=== PATIENT | male | born 1960 | race Caucasian/White ===

== ENCOUNTER 2024-10-13 10:17 | Day surgery (SDC) | payer SELFPAY ==
[2024-10-13] VITALS (21 sets, daily range): BP systolic 136–181; BP diastolic 70–127; PULSE 69–88; RESP 12–20; TEMP 36.5–37.6; O2SAT 93–100; BMI 22.7
--- NOTE | ~2024-10-13 | XR_ITS ---
EXAMINATION: XR SHOULDER 2 OR MORE VIEWS LEFT HISTORY: ?dislocation COMPARISON: There are no prior studies available for comparison. FINDINGS: Three views of the left shoulder are submitted. Osseous mineralization is normal. There is anterior/inferior dislocation of the humeral head. No acute fracture is seen. There is a probable old fracture deformity of the distal clavicle. There is mild narrowing of the AC joint. The soft tissues are unremarkable. XR/XR shoulder LT min 2V IMPRESSION: Anterior/inferior dislocation of the humeral head. Electronically signed by: Kodak Flores MD 10/13/2024 10:47 AM EDT
--- NOTE | ~2024-10-13 | XR_ITS ---
CLINICAL HISTORY: closed reduction 2 view left shoulder Comparison: CR/SR - XR SHOULDER LT 1V - 10/13/24 14:29 EDT Findings: Interval external reduction of the left shoulder anterior inferior dislocation, currently with anatomic alignment. No significant arthritic change. No erosions. No radiopaque foreign body. IMPRESSION: Interval external reduction of the left shoulder anterior inferior dislocation, currently with anatomic alignment. This document has been electronically signed by: Enrique Devries MD on 10/13/2024 19:54:27
--- NOTE | ~2024-10-13 | XR_ITS ---
EXAMINATION: XR SHOULDER, LEFT CLINICAL INFORMATION: post sedation COMPARISON: Earlier same day at 10:39 AM. TECHNIQUE: AP view of the left shoulder. FINDINGS: Persistent anteroinferior dislocation left glenohumeral joint. No definite fracture evident. No interval change in appearance of the AC joint and distal left clavicle. Remainder of the soft tissue and bony structures appear normal. XR/XR shoulder LT 1V IMPRESSION: Persistent anteroinferior left glenohumeral joint dislocation. No definite fracture seen. Electronically signed by: Alex Norman MD 10/13/2024 02:39 PM EDT
--- NOTE | 2024-10-13 12:34 | ED.EXTPRO ---
HPI - Extremity Problem General Chief complaint: Extremity Injury, Upper Stated complaint: L shoulder dislocation Time Seen by Provider: 10/13/24 12:34 Source: patient Mode of arrival: ambulatory Limitations: no limitations History of Present Illness ED Provider: Dr. 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 Patient states that he was caring heavy wood in his left hand, and when he open a door and the door struck his arm causing him to dislocate his left shoulder. He states this has happened to him at least 2 other times in the past and he was able to get his shoulder back in. He states that over the last week he had tried multiple times to reduce his shoulder by slamming his shoulder into a wall and by tying his left arm to a pole and pulling on his arm. He states that he was waiting for the swelling to come down and he thought that it would pop back in spontaneously. Since his shoulder was still dislocated, he decided to come to the emergency department today to get his shoulder evaluated. Related Data Allergies Allergy/AdvReac Type Severity Reaction Status Date / Time seafood Allergy Angioedema Verified 10/13/24 10:27 Review of Systems Review of Systems: Yes all other systems are reviewed and are negative [facility] Past Medical History [facility] Narrative: Social history: The patient smokes 1/2 pack of cigarettes per day. The patient drinks anywhere from 2-6 beers per day. He denies marijuana or drug use. Social History Social History Advance Directives: No Advance Directives Information Provided: No Physical Exam Vital Signs: Vital Signs: Last Vital Signs Temp 97.9 F 10/13/24 14:29 Pulse 75 10/13/24 14:33 Resp 12 10/13/24 14:33 BP 160/85 H 10/13/24 14:33 Pulse Ox 98 10/13/24 14:29 O2 Del Method Aerosol Mask 10/13/24 14:33 O2 Flow Rate 5 10/13/24 14:33 Oxygen Flow Rate 5 10/13/24 14:24 BMI result Body Mass Index 22.7 Vital signs revealed an elevated blood pressure of 152/80 otherwise unremarkable Exam: General: Awake, alert in no distress Head: Normocephalic, atraumatic EENT: PERRL, Lids normal, sclera normal, conjunctiva normal, nose normal , ears normal, throat without erythema or exudates Neck: Supple, no adenopathy Lung: breath sounds symmetric, no wheezing, rales or rhonchi Chest: symmetric movement, nontender Heart: regular rate and rhythm, normal S1, S2 no murmurs or rubs Abdomen: soft, non-tender, nondistended, normal bowel sounds Back: no vertebral tenderness, no CVAT Extremities: Left shoulder deformity consistent with dislocation Neuro: Awake, alert, oriented, normal speech, cranial nerves intact, moves all extremities symmetrically Psych: Pleasant, cooperative Medications Administered Discontinued Medications Generic Name Dose Route Start Last Admin Trade Name Freq PRN Reason Stop Dose Admin Morphine Sulfate 4 mg 10/13/24 12:53 10/13/24 13:33 Morphine Sulfate 4 Mg/Ml Cartridge IVPUSH 10/13/24 12:54 4 mg ONCE STA Administration Protocol Propofol 200 mg 10/13/24 12:55 10/13/24 14:04 Propofol 200 Mg/20 Ml Vial IVPUSH 10/13/24 12:56 200 mg ONCE ONE Administration Medical Decision Making Medical Decision Making MDM Narrative: 64-year-old male with a history footdrop and 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 Physical examination consistent with a left shoulder dislocation. Differential diagnosis: ?Includes but is not limited to left shoulder dislocation, left shoulder fracture Course: 13:14 I made 2 attempts to try to reduce the patient's shoulder without sedation using 2 person scapular manipulation technique without any success. At this point the patient will need procedural sedation with propofol. I am anticipating that this shoulder dislocation may be difficult to reduce since the shoulder has been out for 1.5 weeks and the patient may require orthopedic intervention in the OR. Therefore I did order laboratory evaluation includes CBC, CMP, PT/INR, PTT and EKG. Patient was ordered to get morphine 4 mg IV. 15:05 My independent interpretation patient's laboratory evaluation is as follows: CBC was normal. CMP was normal except for an elevated ALT of 65. Coags were normal. I made multiple attempts to try to reduce the patient's shoulder under procedural sedation with propofol and I was unsuccessful. The patient received a total of 200 mg of propofol IV with good effect. The patient tolerated the procedure well and has no memory of the procedure. Patient was given morphine 4 mg IV x2 after the procedure for his pain. Postreduction films revealed at the shoulder is still dislocated. The patient will be kept NPO. I did discuss the patient over tiger text with the orthopedic physician financial services assistant, Josesito Cuello and the patient will be taken to the operating room for reduction under anesthesia. I did discuss this with the patient. Admission/Observation Consideration of admission/observation: Escalation of care including admission/observation considered (No) Consult Healthcare Provider Management of the patient was discussed with: Cheesemaking Laborer (Orthopedic physician financial services assistant) Lab Data MDM Lab Attestation statement: I reviewed the patient's lab results. 10/13/24 13:31 10/13/24 13:31 Labs: Lab Results 10/13/24 Range/Units 13:31 WBC 9.5 (4.8-10.8) X10*3/uL RBC 4.59 L (4.60-5.80) X10*6/uL Hgb 15.4 (14.0-18.0) g/dl Hct 44.0 (42.0-52.0) % MCV 95.9 (80.0-98.0) fL MCH 33.6 H (27.0-33.0) pg MCHC 35.0 (31.0-36.0) g/dl RDW 12.6 (11.0-16.0) % Plt Count 345 (160-400) X10*3/uL MPV 9.1 L (9.4-12.4) fL Immature Gran % (Auto) 0.5 H (0.0-0.4) % Neut % (Auto) 63.4 (45-73) % Lymph % (Auto) 23.1 (20-40) % Riley % (Auto) 10.3 (2-11) % Eos % (Auto) 2.0 (0-4) % Baso % (Auto) 0.7 (0-2) % Lymph # (Auto) 2.2 (1.2-4.9) X10*3/uL Riley # (Auto) 1.0 (0.1-1.2) X10*3/uL Eos # (Auto) 0.2 (0.0-0.4) X10*3/uL Baso # (Auto) 0.1 (0.0-0.2) X10*3/uL Abs Immat Gran (auto) 0.05 H (0.00-0.03) X10*3/uL Absolute Neuts (auto) 6.0 (2.0-8.3) x10*3/uL Absolute Nucleated RBC 0.000 (0.0-0.012) X10*3/uL Nucleated RBC % (auto) 0.0 (0.0-0.2) /100WBC PT 10.6 L (10.9-12.4) SEC INR 0.9 (0.9-1.1) APTT 30.2 (26.0-36.8) SEC Sodium 139 (135-145) mmol/L Potassium 3.9 (3.3-5.1) mmol/L Chloride 108 (96-108) mmol/L Carbon Dioxide 25 (22-29) mmol/L Anion Gap 10 L (12-20) BUN 16 (9-16) mg/dL Creatinine 0.68 (0.5-1.4) mg/dL Estim Creat Clear Calc 102.1 Estimated GFR > 60 Random Glucose 95 (60-115) mg/dL Calcium 9.1 (8.4-10.2) mg/dL Total Bilirubin 0.7 (0.0-1.0) mg/dL AST 36 (5-37) U/L ALT 65 H (0-40) U/L Alkaline Phosphatase 99 (39-117) U/L Total Protein 6.9 (6.5-8.0) g/dL Albumin 4.1 (3.5-5.0) g/dL Independent Interpretation I performed an independent interpretation of an: Plain X-Ray Interpretation: My independent interpretation patient's three-view left shoulder x-ray is as follows: Anterior dislocation of the shoulder, no acute fracture My independent interpretation the patient's 12 EKG done on 10/13/2024 at 13:16 hours is as follows: Normal sinus rhythm with a rate of 71, normal W[place] interval, QRS duration and QTC interval, no ST segment elevation, no ST segment depression, no significant T-wave abnormalities, incomplete right bundle-branch block, occasional PVC. Compared to EKG dated 02/27/2011 the incomplete right bundle-branch block is old, PVCs are new. Radiology Impression Discussion of test interpretation with radiology: I have reviewed the radiologist's reading. Radiologist Impression: EXAMINATION: XR SHOULDER 2 OR MORE VIEWS LEFT HISTORY: ?dislocation COMPARISON: There are no prior studies available for comparison. FINDINGS: Three views of the left shoulder are submitted. Osseous mineralization is normal. There is anterior/inferior dislocation of the humeral head. No acute fracture is seen. There is a probable old fracture deformity of the distal clavicle. There is mild narrowing of the AC joint. The soft tissues are unremarkable. XR/XR shoulder LT min 2V IMPRESSION: Anterior/inferior dislocation of the humeral head. Electronically signed by: Kodak Flores MD 10/13/2024 10:47 AM EDT Procedures Procedure Narrative Procedure Narrative: Procedural sedation for left shoulder dislocation reduction: Patient gave me informed written consent. Patient was placed on a nuclear spectroscopist, O2 saturation and end-tidal CO2 monitor. A respiratory therapist was present at all times during the procedure and the patient had a dedicated ED nurse to monitor the patient was vital signs. The patient was sedated with propofol a total of 200 mg. The patient had no complications from the procedural sedation and tolerated it well. Patient had no memory of the procedure. The shoulder reduction was unsuccessful-please see joint reduction note. The procedural sedation and reduction procedures lasted a approximally 30 minutes. Jaw Reduction Time Out Performed: Yes Pre-Treatment Medications Used: opioids (Morphine 4 mg IV) Technique used: downward anterior traction Reduction successful: No Patient Tolerated Procedure: well Complications: none Discharge Plan Discharge Clinical Impression: Anterior dislocation of left shoulder Patient Disposition: Xfer Other Transfer Details: Transfer to OR Print Language: Azeri
--- NOTE | 2024-10-13 13:10 | ECG_ITS ---
Test Reason : shoulder pain Blood Pressure : */* mmHG Vent. Rate : 71 BPM Atrial Rate : 71 BPM P-R Int : 148 ms QRS Dur : 94 ms QT Int : 386 ms P-R-T Axes : 17 -11 29 degrees QTcB Int : 419 ms Sinus rhythm with Premature atrial complexes with Aberrant conduction Incomplete right bundle branch block Borderline ECG When compared with ECG of 27-Feb-2011 10:16, Premature atrial complexes are now Present Referred By: Amador Chance Electronically Signed By: BEENA TAVERAS MD
[2024-10-13] MEDS: Morphine Sulfate 4 MG/ML CARTRIDGE IVPUSH ×3 (13:33→15:29)
[2024-10-13 13:38] LABS: MANUAL DIFF FLAG NO
[2024-10-13 13:44] LABS: Basophils Absolute Auto 0.1 X10*3/uL (0.0-0.2); Basophils Percent Auto 0.7 % (0-2); Eosinophils Absolute Auto 0.2 X10*3/uL (0.0-0.4); Hemoglobin 15.4 g/dl (14.0-18.0); Imm Gran Abs Auto 0.05 X10*3/uL (0.00-0.03); Imm Gran Pct Auto 0.5 % (0.0-0.4); Lymphocytes Absolute Auto 2.2 X10*3/uL (1.2-4.9); Lymphocytes Percent Auto 23.1 % (20-40); Mean Corpuscular Hemoglobin 33.6 pg (27.0-33.0); Mean Corpuscular Volume 95.9 fL (80.0-98.0); Mean Platelet Volume 9.1 fL (9.4-12.4); Monocytes Percent Auto 10.3 % (2-11); Neutrophils Percent Auto 63.4 % (45-73); Platelet Count 345 X10*3/uL (160-400); Red Blood Count 4.59 X10*6/uL (4.60-5.80); Red Cell Distribution Width 12.6 % (11.0-16.0); White Blood Count 9.5 X10*3/uL (4.8-10.8)
--- NOTE | 2024-10-13 13:45 | PC.NURSE ---
a&ox4. vss and up to date. pt presents to the ED c/o LUE pain s/p dislocation. pt reports that this is his 3rd time dislocating his LUE. pt stating approximately 1.5 weeks ago, he was outside carrying a large amount of wood to bring inside. when attempting to go through a door, the wind blew hitting his LUE causing immediate dislocation, pt reports attempts repositioning shoulder on his own by slamming it into banda but was ineffective. pt presents today d/t increased pain w/ slightly numbness/tingling in LUE. pulses palpable. ROM limited d/t deranged LUE. tender w/ palpation. plan to move to ED4 to place on front desk monitor/perform conscious sedation. 18gIV placed in the right AC - labs obtained/sent to lab. medication administered per provider order. effectiveness pending. pt on RA w/o difficulty - no sob/wob noted. respirations even/unlabored. plan of care ongoing.
[2024-10-13 13:47] LABS: INTERNATIONAL NORM RATIO 0.9 (0.9-1.1); Prothrombin Time 10.6 SEC (10.9-12.4)
[2024-10-13 13:49] LABS: Partial Thromboplastin Time 30.2 SEC (26.0-36.8)
[2024-10-13 14:02] LABS: Alanine Aminotransferase 65 U/L (0-40); Albumin Level 4.1 g/dL (3.5-5.0); Alkaline Phosphatase 99 U/L (39-117); Anion Gap 10 (12-20); Aspartate Amino Transferase 36 U/L (5-37); Bilirubin Total 0.7 mg/dL (0.0-1.0); Blood Urea Nitrogen 16 mg/dL (9-16); Calcium 9.1 mg/dL (8.4-10.2); Carbon Dioxide 25 mmol/L (22-29); Chloride 108 mmol/L (96-108); Creatinine Clr Calc Pharmacy 102.1; Estimated Glomerular Filt Rate > 60; Glucose Random 95 mg/dL (60-115); Potassium 3.9 mmol/L (3.3-5.1); Sodium 139 mmol/L (135-145); Total Protein 6.9 g/dL (6.5-8.0)
[2024-10-13] MEDS: propofoL 200 MG/20 ML VIAL IVPUSH (14:04)
--- NOTE | 2024-10-13 14:04 | PC.NURSE ---
patient moved to ED4 for conscious sedation procedure. MD/RN/RT/EDT bedside for assistance. pt placed on production technologist. ambu bag on place. pt placed on capnography. suction bedside for convenience. procedure initiated at 1404. 50mg of propofol administered at 1404. pt remained completely alert/oriented s/p first dose of medication. additional 50mg administered at 1407. pt somewhat lethargic but still speaking in full/clear sentences/responding to verbal stimuli. additional 20mg administered at 1409. pt placed on 3L via NC for supplemental O2 via RT. another 20mg administered at 1411. pt still responding to painful stimuli/seemingly uncomfortable. additional 20mg administered at 1414. pt still responding to painful stimuli when attempting to reduce. 40mg administered at 1419. multiple attempts made by /MATTHEW to reduce LUE but were unsuccessful. procedure time ended at 1421. pt remains on 5L via NC s/p post procedural sedation. answering questions/following commands appropriately s/p procedure. nsr on the production technologist. no sob/wob noted. respirations even/unlabored. see pre/intra/post/MD charting for additional procedure notes. vital signs documented. plan of care ongoing.
--- NOTE | 2024-10-13 14:33 | PC.NURSE ---
ot alert and oriented/back to baseline s/p medication administration at this time. answering questions/following commands appropriately. vss and up to date aside from being slightly hypertensive. nsr on the scrap shear operator. pt currently remains on 5L via NC at this time. maintaining airway w/o difficulty. speaking in full/clear sentences. no sob/wob noted. respirations even/unlabored. will wean pt off of O2 as needed. plan of care ongoing. call silva placed within reach.
--- NOTE | 2024-10-13 14:45 | PC.NURSE ---
pt reports increase in pain in LUE s/p procedure. pt medicated per provider order. effectiveness pending. O2 weaned to 3L via NC at this time - SPO2 @ 97%. pt continues to maintain airway w/o difficulty. no sob/wob noted. respirations remain even/unlabored. plan of care ongoing. call silva placed within reach.
--- NOTE | 2024-10-13 15:23 | P.CONOP_ITS ---
History of Present Illness HPI Consult date: 10/13/24 Chief complaint: L shoulder dislocation Narrative: 64 yo male presents to ED s/p left shoulder dislocation x1.5weeks ago. He states he was carrying in wood and the garage door swung from the wind and he was still holding onto the door as he felt the shoulder dislocate. He states approx 10 years ago he has shoulder dislocation which he was able to self reduce. He attempted to self reduce his shoulder this time but was unsuccessful which prompted ED visit. While int he ED, xrays confirmed dislocation. ED provider attempted reduction without success. Ortho consulted for recommendations. Review of Systems 2 Review of Systems: Yes all other systems are reviewed and are negative [facility] Social History Social History Alcohol intake: current Alcohol intake frequency: 3 or more drinks per day Alcohol type: beer Smoked in Last 30 Days: Yes Use of substances other than those prescribed or required for medical reasons: Yes Substance Use Type: Marijuana Substance Use Frequency: Occasionally Advance Directives: No Advance Directives Information Provided: No Meds Allergies Allergy/AdvReac Type Severity Reaction Status Date / Time seafood Allergy Angioedema Verified 10/13/24 10:27 Physical Exam 2 Vital Signs: Vital Signs: Last Vital Signs Temp 97.9 F 10/13/24 14:29 Pulse 73 10/13/24 14:49 Resp 14 10/13/24 14:49 BP 167/79 H 10/13/24 14:49 Pulse Ox 100 10/13/24 14:49 O2 Del Method Nasal Cannula 10/13/24 14:49 O2 Flow Rate 1 10/13/24 14:49 Oxygen Flow Rate 5 10/13/24 14:24 BMI result Body Mass Index 22.7 Const: General: cooperative, healthy appearing, comfortable and no acute distress Extrem: Other: left shoulder skin intact arm is abd and IR Sensation intact Results Labs 10/13/24 13:31 10/13/24 13:31 Labs: Abnormal lab results 10/13/24 Range/Units 13:31 RBC 4.59 L (4.60-5.80) X10*6/uL MCH 33.6 H (27.0-33.0) pg MPV 9.1 L (9.4-12.4) fL Immature Gran % (Auto) 0.5 H (0.0-0.4) % Abs Immat Gran (auto) 0.05 H (0.00-0.03) X10*3/uL PT 10.6 L (10.9-12.4) SEC Anion Gap 10 L (12-20) ALT 65 H (0-40) U/L H & H 10/13/24 Range/Units 13:31 Hgb 15.4 (14.0-18.0) g/dl Hct 44.0 (42.0-52.0) % Coagulation 10/13/24 Range/Units 13:31 INR 0.9 (0.9-1.1) All other labs normal. Assessment and Plan (1) Dislocation of left shoulder joint: Status: Acute Plan Case reviewed with Dr Augustine. The decision was made to take the patient to the OR for closed reduction left shoulder. I discussed this with the patient at bedside. Discussed risk benefits and alternatives. Risk including but not limited to recurrent dislocation, pain, fracture, stiffness and need for Open reduction. Patient does express understanding and consents to left shoulder closed reduction left shoulder . Procedures Date of Service Date of Service: 10/13/24
--- NOTE | 2024-10-13 15:43 | PC.NURSE ---
report given to RN in PACU at this time.
--- NOTE | 2024-10-13 17:45 | MHC.SHP ---
Pre-Procedural Eval Section A - 24 Hr Update-Section A only Date of Service: 10/13/24 The patient is an INPATIENT: No Changes since office visit: No Cold of Flu in the past 2 weeks, No New Medical Problems, No Changes in Medication and No Patient answered all questions The patient has been examined within 24 hours of the surgical procedure. The History & Physical has been completed within 30 days and I have reviewed it.: Yes Section B - Complete if H&P > 30 days Chief Complaint: L shoulder dislocation Allergies: Allergies Allergy/AdvReac Type Severity Reaction Status Date / Time seafood Allergy Angioedema Verified 10/13/24 10:27 Plan I have reviewed the history and physical and performed a pertinent physical examination on my patient. No changes have occurred unless specified. Time Spent With Patient Time: Total time managing care of this patient today ____ minutes.
--- NOTE | 2024-10-13 19:16 | P.BOP_ITS ---
Brief Operative Note Date of Service: 10/13/24 Pre-op diagnosis: Left shoulder dislocation Post-op diagnosis: same Procedure: closed reduction left shoulder Surgeon: Aubrey Augustine MD Anesthesia: GLMA Was an Director Occupational used for this Procedure?: Yes Director Occupational: Josesito Cuello Estimated blood loss (mL): 0 IV fluids (mL): 250 Pathology: none sent Condition: stable Disposition: PACU
[2024-10-13] MEDS: fentaNYL citrate/PF 100 MCG/2 ML VIAL 25 MCG IVPUSH ×6 (19:30→19:55)
[2024-10-13] MEDS: Ketorolac Tromethamine 30 MG/ML VIAL IVPUSH (19:35)
[2024-10-13] MEDS: Acetaminophen 1,000 MG/100 ML PIGGYBACK 400 MG IV (19:35)
--- NOTE | 2024-10-13 20:28 | HO.POSTANES ---
Post Anesthesia Evaluation Post Anesthesia Evaluation Date of Service: 10/13/24 Vital Signs: Vital Signs Temp Pulse Resp BP Pulse Ox O2 Del Method O2 Flow Rate 10/13/24 20:15 99.0 F 79 16 136/72 94 Room Air 10/13/24 20:00 69 16 137/73 94 Room Air 10/13/24 19:55 73 18 158/74 H 93 Room Air 10/13/24 19:55 18 10/13/24 19:50 73 20 156/72 H 94 Room Air 10/13/24 19:50 20 10/13/24 19:45 84 20 137/78 94 Room Air 10/13/24 19:45 20 10/13/24 19:40 78 20 156/79 H 94 Room Air 10/13/24 19:40 20 10/13/24 19:35 87 20 167/94 H 94 Room Air 10/13/24 19:35 20 10/13/24 19:30 85 20 181/127 H 94 Room Air 10/13/24 19:30 20 10/13/24 19:25 97.7 F 87 16 156/103 H 94 Room Air 10/13/24 16:40 99.6 F 78 20 151/75 H 96 Room Air 10/13/24 15:29 98.1 F 74 18 157/77 H 98 Room Air 10/13/24 14:49 73 14 167/79 H 100 Nasal Cannula 1 10/13/24 14:43 76 14 156/81 H 97 Nasal Cannula 3 10/13/24 14:37 72 18 160/87 H 99 Nasal Cannula 5 10/13/24 14:33 75 12 160/85 H Aerosol Mask 5 10/13/24 14:29 97.9 F 88 17 166/99 H 98 Nasal Cannula 5 10/13/24 14:24 97.9 F 88 20 136/94 H 98 10/13/24 13:59 98.3 F 84 18 159/70 H 98 10/13/24 13:52 98.2 F 72 14 152/99 H 98 10/13/24 10:25 98.4 F 76 18 152/80 H 96 Room Air Anesthesia: General LMA and General Mental Status: Awake Pain Control: Satisfactory Nausea/Vomiting: None Hydration: Adequate Anesthesia-Related Issues: No Anes. Related Issues
--- NOTE | 2024-10-16 16:24 | W.PM.OPN ---
Operative Note Operative Note Date of Service: 10/13/24 Narrative: Date of Service: 10/13/24 Pre-op diagnosis: Left shoulder dislocation Post-op diagnosis: same Procedure: closed reduction left shoulder Surgeon: Aubrey Augustine MD Anesthesia: GLMA Was an Account Contact Associate used for this Procedure?: Yes Account Contact Associate: Josesito Ceullo Estimated blood loss (mL): 0 IV fluids (mL): 250 Pathology: none sent Condition: stable Disposition: PACU Patient was brought the operating room placed supine in the hospital bed. A time-out was called to identify proper site proper surgeon. Once he was fully anesthetized I applied axial traction and external rotation to his shoulder. Was able to manipulate the shoulder joint into place with my hand over the anterior aspect of the glenohumeral joint. Initially it would reduce with external rotation but after a minute it was relatively stable. I could abduct him to 90 degrees in his long as I did not externally rotate him past 30 degrees he was stable. He was placed into an abduction sling extubated. Final radiographs showed a reduced left glenohumeral joint.
== END 2024-10-13 15:41 | disposition home or self-care (01) ==
LOC: HO.ED 15:43 → HO.SSS 16:16
PROVIDERS: Emergency Provider Emergency Medicine Emergency Medical Services; Visit Provider Orthopaedic Surgery
PROC: (CPT 23655; principal; 2024-10-13 15:20)
DX: M24.412 Recurrent dislocation, left shoulder (principal); M25.512 Pain in left shoulder; R79.1 Abnormal coagulation profile; F17.210 Nicotine dependence, cigarettes, uncomplicated; F12.90 Cannabis use, unspecified, uncomplicated
CPT/HCPCS: 23655; 23650; 36415; 73020; 73030; 80053; 85025; 85610; 85730; 93005; 96374; 96375; 96376; 99285; J0131; J1885; J2003; J2270; J2704; J3010

== ENCOUNTER → 2024-10-13 10:28 | Outpatient (BNV) | payer SELFPAY | PROVIDERS: Visit Provider Radiology Diagnostic Radiology | DX: S43.035A Inferior dislocation of left humerus, initial encounter (principal) | CPT/HCPCS: 73020; 73030 ==

== ENCOUNTER → 2024-10-13 10:41 | Outpatient (BNV) | payer SELFPAY | PROVIDERS: Emergency Provider Emergency Medicine Emergency Medical Services; Visit Provider Physician Assistant | DX: S43.005A Unspecified dislocation of left shoulder joint, initial encounter (principal) | CPT/HCPCS: 23655; 99284; J2003 ==

== ENCOUNTER → 2024-10-13 13:10 | Outpatient (BNV) | payer SELFPAY | PROVIDERS: Emergency Provider Emergency Medicine Emergency Medical Services; Visit Provider Internal Medicine Cardiovascular Disease | DX: I45.19 Other right bundle-branch block (principal); R94.31 Abnormal electrocardiogram [ECG] [EKG] | CPT/HCPCS: 93010 ==